=== PATIENT | male | born 1970 | race African-American/Black ===

== ENCOUNTER 2018-09-07 05:45 | Day surgery (SDC) | payer OTHER ==
[2018-09-03 15:07] VITALS: BMI 29.0
[2018-09-07] MEDS ORDERED: BUPIVACAINE HCL/PF 0.5% (5MG/ML) 10 ML VIAL ONE (07:00)
[2018-09-07] MEDS ORDERED: LIDOCAINE 1%/EPI 1:100000 (20 ML MULTI DOSE VIAL) ONE (07:00)
--- NOTE | 2018-09-07 08:00 | HP ---
Satellite [facility] - Chief Complaint Chief Complaint: left knee pain - Past Medical History Allergies/Adverse Reactions: Allergies Allergy/AdvReac Type Severity Reaction Status Date / Time No Known Allergies Allergy Verified 09/07/18 06:29 - Current Medications Current Medications: Home Medications Medication Instructions Recorded Lisinopril/Hydrochlorothiazide 1 tab PO DAILY 09/07/18 [Lisinopril-Hctz 10-12.5 mg Tab] Oxycodone HCl/Acetaminophen 1 tab PO Q6H #20 tablet MDD 4 09/07/18 [Percocet 5-325 mg Tablet] Satellite Physical Exam - Physical Examination Vital Signs: Vital Signs Period Temp Pulse Resp BP Sys/Lott Pulse Ox Last 24 Hr 98.6 F 84 16 142/100 96-96 General Appearance: Well Nourished, Well Developed, Alert & Oriented x3 ENT: Clear Lung: Normal air movement Heart: Regular rate & rhythm Extremities: Other (left knee- + swelling, + ttp, decr rom, + mcmurrays, nvi MRI + mt) Neurological: Intact, Alert, Oriented Satellite Impression/Plan - Impression/Plan Impression: left knee internal derangement Operative Procedure: left knee arthroscopy Date to be Performed: 09/07/18
[2018-09-07] MEDS ORDERED: DEXAMETHASONE SOD PHOSPHATE 4 MG/1 ML VIAL ONE (08:05)
[2018-09-07] MEDS ORDERED: PROPOFOL 20 ML ONE ×3 (08:05→08:14)
[2018-09-07] MEDS ORDERED: MIDAZOLAM HCL 2 MG/2 ML SINGLE DOSE VIAL ONE (08:05)
[2018-09-07] MEDS ORDERED: ONDANSETRON 4 MG/2 ML VIAL ONE (08:05)
[2018-09-07] MEDS ORDERED: SUCCINYLCHOLINE CHLORIDE 200 MG/10 ML VIAL ONE (08:07)
[2018-09-07] MEDS ORDERED: BUPIVACAINE HCL/PF (5 MG/ML) 30 ML VIAL IJ ONE (08:10)
[2018-09-07] MEDS ORDERED: LIDOCAINE 1%/EPI 1:100000 (50 ML MULTI DOSE VIAL) INF ONE (08:10)
[2018-09-07] MEDS ORDERED: ONDANSETRON 4 MG/2 ML VIAL IVPUSH PRN (08:47)
[2018-09-07] MEDS ORDERED: oxyCODONE HCL 5 MG TABLET PO PRN ×2 (08:47)
[2018-09-07] MEDS ORDERED: LACTATED RINGERS SOLUTION 1,000 ML IV SCH (09:00)
[2018-09-07 10:28] VITALS: TEMP 97.6
[2018-09-07 10:42] VITALS: BP 128/78; PULSE 79
--- NOTE | 2018-09-07 12:00 | OP ---
Operative Note - Note: Operative Date: 09/07/18 (avlaro) Pre-Operative Diagnosis: left knee internal derangement Operation: left knee arthroscopy with PMM Post-Operative Diagnosis: Same as Pre-op Surgeon: Lorenzo Escobar Anesthesiologist/WHEEL TUNER: Nguyen Pritchett Anesthesia: General, Local Specimens Removed: shavings Estimated Blood Loss (mls): 5 Operative Report Dictated: Yes
--- NOTE | 2018-09-08 18:33 | OP ---
DATE OF OPERATION: 09/07/2018 PREOPERATIVE DIAGNOSIS: Left knee meniscus. POSTOPERATIVE DIAGNOSIS: Left knee meniscus. PROCEDURE: Arthroscopy left knee partial medial meniscectomy. SURGICAL ATTENDING: Lorenzo Escobar M.D. ANESTHESIA: General with LMA. CLOSURE: 4-0 nylon. COMPLICATIONS: None. CONDITION: To recovery in stable condition. DESCRIPTION OF OPERATIVE PROCEDURE: Patient was taken to the operating room on September 07, 2018. General anesthesia with LMA was administered by the anesthesiologist. The left lower extremity was prepped and draped in the usual sterile fashion. The medial and lateral infrapatellar portal sites were infiltrated with 1% Xylocaine with epinephrine. Both portals were then made with 15 blade followed by blunt trocar. The scope was placed in the lateral infrapatellar portal and up into the suprapatellar pouch. A cocktail of 10 mL of 1% lidocaine, 10 mL 0.5% Marcaine and 20 mL of arthroscopic saline was infused through the trocar for intraarticular anesthesia. After allowing the anesthetic to work for a few minutes, the procedure was performed. The pouch was visualized to be clean. The medial lateral gutters were visualized to be intact. The undersurface of the patella and trochlea were visualized to be intact. With valgus stress on the knee, the medial compartment was entered and the medial meniscus was found to have a large bucket handle tear that was torn in multiple planes. The meniscus was cut both anteriorly and posteriorly, and then debrided using a Mac and also using the shaver. The stump anterior and posterior were smoothened using the shaver. The residual meniscus on its rim was also smoothed using the shaver. Medial femoral condyle was found to be intact, as was the medial tibial plateau. At 90 degrees, the ACL and PCL were visualized and probed and found to be intact. In the figure of 4 position, the lateral compartment was entered. The lateral meniscus was visualized and probed and found to be intact. The lateral femoral condyle was was run and was found to be intact as was the lateral tibial plateau. The knee was irrigated with copious amounts of irrigation. The fluid was drained from the knee and inflated with 20 mL of 0.5% Marcaine, and then the trocars were removed. The portals were closed using 4-0 nylon interrupted sutures. Sterile pressure dressing was placed over the knee. Patient awakened from anesthesia and transferred to recovery in stable condition. No complications. Estimated blood loss negligible. Werner BRITO/[id number]
--- NOTE | 2018-09-09 12:09 | PATH ---
Surgical Pathology Report Patient Name: PEYTON MEZA [facility]. Rec. #: [id number] /Age/Gender: 1970 (Age: 48) / M Account: [id number] Location: [facility] AMBULATORY Taken: 09/07/2018 Received: 09/07/2018 Reported: 09/09/2018 Physicians: Lorenzo Escobar M.D. Specimen(s) Received LEFT KNEE SHAVINGS Clinical History Left knee shavings Final Diagnosis KNEE, LEFT, ARTHROSCOPIC SHAVINGS: FIBROSYNOVIAL TISSUE, FIBROCOLLAGENOUS TISSUE AND CARTILAGE. Electronically Signed Cindy Cunningham M.D. Gross Description Received in formalin labeled "left knee shavings" multiple irregular fragments of white-perla to yellow-perla fibrocartilaginous soft tissue measuring 4 x 3 x 1 cm in aggregate. Cabinet Maker sections are submitted in one cassette. MLSZ/09/07/2018 sanglynn/09/07/2018
== END 2018-09-07 10:15 | disposition home or self-care (01) ==
LOC: FASU 05:45
PROVIDERS: ATTEND Orthopaedic Surgery
PROC: 0SBD4ZZ Excision of Left Knee Joint, Percutaneous Endoscopic Approach (ICD-10-PCS; principal; 2018-09-07 08:14)
DX: S83.212A Bucket-handle tear of medial meniscus, current injury, left knee, initial encounter (principal); X58.XXXA Exposure to other specified factors, initial encounter; Y93.9 Activity, unspecified; Y92.9 Unspecified place or not applicable
CPT/HCPCS: 88304-TC; 94760; 97116-GP